=== PATIENT | male | born 1955 | race Caucasian/White ===

== ENCOUNTER 2019-05-18 18:53 | Emergency (ER) | payer SELFPAY ==
[2019-05-18 18:54] VITALS: BP 165/89; PULSE 99; RESP 16; TEMP 36.7; O2SAT 97; BMI 28.0
--- NOTE | 2019-05-18 19:53 | CT_ITS ---
STUDY: CT BRAIN WITHOUT CONTRAST REASON FOR EXAM: Male, 64 years old. Fall, hit head on concrete. RADIATION DOSAGE (If Supplied By Facility): CTDIvol = ( 44.99 ) mGy, DLP = ( 779.24 ) mGycm TECHNIQUE: Transaxial CT imaging of the brain was performed without administration of intravenous contrast material. Individualized dose optimization techniques were used for this CT. COMPARISON: No relevant priors. FINDINGS: Left frontal soft tissue swelling and small hematoma is present. Normal calvarium. Normal size ventricles and extra-axial spaces for the patient's age. Normal white matter tracts of the cerebral hemispheres. Normal basal ganglia and thalami. Normal brainstem. Normal cerebellum. There is no intracranial hemorrhage. There are no findings of an acute ischemic infarction. Normal visualized paranasal sinuses. CT/Brain/Head without Contrast IMPRESSION: Left frontal soft tissue swelling and hematoma with no evidence of underlying fracture, acute intracranial bleed or mass. Electronically Signed: Donn Pedro DO at 20:20 EDT , Service support ,
--- NOTE | 2019-05-18 19:53 | CT_ITS ---
STUDY: CT CERVICAL SPINE WITHOUT CONTRAST REASON FOR EXAM: Male, 64 years old. Fall. RADIATION DOSAGE (If Supplied By Facility): CTDIvol = ( 25.71 ) mGy, DLP = ( 608.41 ) mGycm TECHNIQUE: High resolution transaxial imaging was performed without contrast material. Sagittal and coronal images were reconstructed. Individualized dose optimization techniques were used for this CT. COMPARISON: None FINDINGS: Normal craniovertebral junction. Normal anterior atlantoaxial articulation. Normal odontoid process. Normal cervical lordosis. Normal vertebral bodies and posterior osseous elements. C2-3: Right uncovertebral joint arthropathy and facet arthropathy resulting in moderate right foraminal narrowing. C3-4: Disc osteophyte complex with right uncovertebral joint arthropathy resulting in mild right foraminal narrowing. C4-5: Normal endplates. Normal disc height and morphology. Normal central canal and intervertebral neuroforamina. C5-6: Decreased disc space and endplate sclerosis with uncovertebral joint arthropathy and facet arthropathy resulting in moderate to severe right foraminal narrowing. C6-7: Endplate degenerative change and disc space loss with underlying facet arthropathy resulting in [id number] bilateral foraminal narrowing. C7-T1: Normal endplates. Normal disc height and morphology. Normal central canal and intervertebral neuroforamina. Normal visualized soft tissue structures. CT/Spine Cervical without Contras IMPRESSION: Multilevel degenerative changes as above with no evidence of acute fracture or dislocation. Electronically Signed: Donn Pedro DO at 20:27 EDT , Service support ,
[2019-05-18] MEDS: Diphth,Pertuss(Acell),Tet Vac 0.5 ML Vial IM (20:14)
--- NOTE | 2019-05-18 21:14 | ED.VISSUMM ---
- ER Visit Summary Date of Service: 05/18/19 Chief Complaint: Fall History of Present Illness: The patient is a 64 M who presents after a fall that occurred today. Patient fell getting off a skid steer. Patient fell forward and hit his head. Patient denies any loss of consciousness. Patient admits to some tingling in his hands. Patient describes his pain as burning. Patient admits to some abrasions on his hands bilaterally. Patient also has an abrasion of the left frontal area. Patient denies any visual changes. Patient denies any nausea or vomiting. Physical Examination: Vital signs are stable. Patient is afebrile. Patient is in no acute distress. Skin is warm dry. There is a superficial abrasion and hematoma of the left frontal area. There is a very superficial abrasion over the left hand on the dorsal aspect over the second metacarpal. There is no active bleeding noted. There is no bony crepitance or step-off. Cranial nerves II through XII are intact. There are no focal motor or sensory deficits noted. Heart was regular rate and rhythm. Lungs are clear and equal bilaterally. Abdomen is soft and nontender. Extremities are intact. There is full range of motion of all extremities. There is no deformity noted. There is mild tenderness of the cervical paraspinal muscles. Test Results: CT scan of the brain and cervical spine was obtained. There is no acute intracranial abnormality. There are degenerative changes of the cervical spine. There is no acute fracture. Emergency Department Course and Treatment: Patient was given a tetanus booster. Patient was given head injury instructions. Patient was instructed to follow-up with his primary care physician in 5 to 7 days. Patient was instructed to take Tylenol as needed for pain. Patient and his understood and were agreeable with the plan. All questions were answered. Disposition: Discharge home Impression: 1. Closed head injury 2. Acute cervical strain This note was generated with [employer] dictation software. It may contain incorrect words, spelling, and punctuation that were not noted in review of the chart prior to signing ED Disposition - Plan for ED Patient: Disposition: Home or Assisted Living Diagnosis: Closed head injury, Cervical strain, acute Instructions: HEAD INJURY, No Wake-Up (Adult), Neck Sprain/Strain Referrals: Flash Oden, [Primary Care Provider] - 5-7 Days
[2019-05-18 21:32] VITALS: BP 148/97; RESP 18
== END 2019-05-18 21:37 | disposition home or self-care (01) ==
PROVIDERS: Emergency Provider Emergency Medicine; Family Provider Family Medicine; PCP Family Medicine
DX: S00.81XA Abrasion of other part of head, initial encounter (principal); S16.1XXA Strain of muscle, fascia and tendon at neck level, initial encounter; S60.512A Abrasion of left hand, initial encounter; S60.511A Abrasion of right hand, initial encounter; W19.XXXA Unspecified fall, initial encounter; Y93.9 Activity, unspecified; Y92.9 Unspecified place or not applicable; E11.9 Type 2 diabetes mellitus without complications; G20 Parkinson's disease
CPT/HCPCS: 70450; 72125; 90471; 90715; 99282

== ENCOUNTER → 2019-05-25 12:43 | Outpatient (CLI) | payer OTHER, SELFPAY ==
[2019-05-18 18:54] VITALS: BMI 28.0
--- NOTE | 2019-05-25 12:49 | RAD_ITS ---
STUDY: SWALLOWING STUDY REASON FOR EXAM: Male, 64 years old. Dysphagia. Parkinson's disease. TECHNIQUE: The examination was performed with Speech Pathology in attendance. Under fluoroscopic observation, the patient ingested thin barium, thick barium, barium pudding, and barium coated cracker. FLUOROSCOPY TIME: 1:59 minutes/seconds. 1834 fluoroscopic images were obtained. RADIOLOGIST INVOLVEMENT: Radiologist was present and providing direct supervision. COMPARISON: None. FINDINGS: The following was observed during swallowing of the various mixtures of barium: Thin Barium: There was no evidence of aspiration or laryngeal penetration. Thick Barium: There was no evidence of aspiration or laryngeal penetration. Barium Pudding: There was no evidence of aspiration or laryngeal penetration. Barium Coated Cracker: There was no evidence of aspiration or laryngeal penetration. RAD/Swallowing Function w/Video IMPRESSION: Normal tailored barium swallow study. No evidence of increased risk for aspiration. The swallow study findings were discussed with the patient by the speech pathologist at the conclusion of the examination. Please see speech pathology report for more information and recommendations. Electronically Signed: Henrik Zimmerman, at 13:52 EST , Service support ,
--- NOTE | 2019-05-25 14:34 | SP.MBSS_ITS ---
PRIMARY / SECONDARY DIAGNOSIS: Dysphagia REFERRING PHYSICIAN: Dr. Flash Oden CURRENT DIET: regular textures/thin liquids DENTITION: dental implants MENTAL STATUS: WFL RESPIRATORY STATUS: O2 via room air PREVIOUS MODIFIED BARIUM SWALLOW STUDY: N/A REASON FOR REFERRAL: Patient and , Brianna, both present and report increase in drooling. Pt being seen by speech therapy at [facility] outpatient. Referral made to rule out aspiration. MEDICAL HISTORY: The patient is a 64/m with past medical history significant for Parkinson's Disease and HTN. STUDY FINDINGS: Patient participated in a Modified Barium Swallow (MBS) study on 05/25/2019. Dr. Zimmerman was the radiologist present for this evaluation. This study was recorded in the lateral view and images were sent to PACs for storage. The following consistencies were presented to this patient for analysis of oropharyngeal swallow function: thin liquid, nectar thick liquid, pudding, and a regular textured, Ester Doone cookie. Results of the MBS are as follows: PENETRATION / ASPIRATION SCALE (COOMBS): 1 = does not enter airway 2 = enters airway/above vocal folds/ejected 3 = enters airway/above vocal folds/not ejected 4 = enters airway/contacts vocal folds/ejected 5 = enters airway/contacts vocal folds/not ejected 6 = enters airway/below vocal folds/ejected 7 = enters airway/below vocal folds/not ejected despite effort 8 = enters airway/below vocal folds/no effort PENETRATION / ASPIRATION SCALE (SCORE): 1) Thin liquids via teaspoon = 1 2) Thin liquids via teaspoon = 1 3) Thin liquids via small single sip from cup = 2 *trace 4) Thin liquids via large single sip from cup = 2 *trace 5) Thin liquids via sequential sips from cup = 1 6) [place] thick liquids via small single sip from cup = 1 7) pudding = 1 8) cookie = 1 9) Thin liquids via sequential sips from straw = 2 IMPRESSION: ORAL PHASE CHARACTERIZED BY: LABIAL SEAL: escape progressing to mid-chin TONGUE CONTROL DURING BOLUS MANIPULATION: posterior escape of less than half of bolus BOLUS PREPARATION / MASTICATION: slow prolonged chewing/mashing with complete recollection BOLUS TRANSPORT / LINGUAL MOTION: delayed initiation of tongue motion ORAL RESIDUE: residue collection on oral structures PHARYNGEAL PHASE CHARACTERIZED BY: INITIATION OF PHARYNGEAL SWALLOW: bolus head in pyriforms at first hyoid excursion SOFT PALATE ELEVATION: no bolus between soft palate and pharyngeal wall LARYNGEAL ELEVATION: partial superior movement of thyroid cartilage/partial approximation of arytenoids cartilage to epiglottic petiole ANTERIOR HYOID EXCURSION: partial anterior movement EPIGLOTTIC MOVEMENT: partial epiglottic inversion LARYNGEAL VESTIBULE CLOSURE AT HEIGHT OF SWALLOW: incomplete laryngeal vestibule closure with narrow column of air/contrast in laryngeal vestibule PHARYNGEAL STRIPPING WAVE: pharyngeal stripping wave present / complete PHARYNGOESOPHAGEAL SEGMENT OPENING: partial distension and partial duration; partial obstruction of flow TONGUE BASE RETRACTION:trace column of contrast between tongue base and posterior pharyngeal wall PHARYNGEAL RESIDUE: trace residue within or on pharyngeal structures ESOPHAGEAL PHASE CHARACTERIZED BY: ESOPHAGEAL BOLUS CLEARANCE IN THE UPRIGHT POSITION: could not view DIET TEXTURE RECOMMENDATIONS: Will recommend a mechanical soft textured, thin liquid diet. COMPENSATORY STRATEGIES RECOMMENDED: Will recommend distant supervised meals, reduced bolus volume, reduced rate of intake, no straws, seated upright at 90 degrees during PO intake, and remain upright for 30-60 minutes post meal (GERD precaution). INTERPRETATION OF RESULTS: Patient presents with mild-moderate oropharyngeal dysphagia (R13.12) secondary to Parkinson's disease. Oral phase primarily marked by prolonged mastication with Ester Doone shortbread cookie. Oral holding noted with larger sip of thin liquids resulting in premature bolus loss. Pt required second swallow to clear oral residue from larger sip and cookie. Pharyngeal phase primarily marked by reduced closure of the airway during deglutition attributed to reduced laryngeal elevation and anterior hyoid excursion ultimately resulting in insufficient epiglottic inversion. Trace penetration above the vocal cords noted with thin liquids with both small and large single sips (trace) as well as with thin liquids via straw. All were ejected. No aspiration found on this assessment. Patient had difficulty maneuvering the straw when trialing thin liquids. Would recommend all liquids via cup for better control and management. Patients reported drooling and observation of diminished control of saliva secondary to Parkinson's disease. Education was provided with both the patient on swallowing saliva rather than spitting out to increase strength and coordination of swallowing musculature frequently throughout the day. RECOMMENDATIONS: Patient requires intensive skilled speech-language intervention targeting continued diet texture management of mechanical soft textures and thin liquids, training and implementation of recommended compensatory strategies, and training and implementation of oropharyngeal strengthening exercises to facilitate improved oropharyngeal strength and coordination. ADDITIONAL COMMENTS/RECOMMENDATIONS: Results and recommendations were discussed with the patient and patients immediately following MBS completion, with the both verbalizing understanding and agreement with all recommendations and education provided. IMAGE COUNT: [id number] Elsie Velásquez M.A., [facility] Speech Language Pathologist [facility] [address] [place] [address] [email or web address] [phone]
== END ==
PROVIDERS: Family Provider Family Medicine; PCP Family Medicine; Referring Provider Family Medicine; Visit Provider Family Medicine
DX: G20 Parkinson's disease (principal); R13.10 Dysphagia, unspecified
CPT/HCPCS: 74230; 92610

== ENCOUNTER 2019-06-05 14:00 | Outpatient (RCR) | payer SELFPAY ==
--- NOTE | 2019-04-14 08:13 | HP.PTEVAL ---
Patient's Visit Information YIFAN BALLESTEROS is a 64 year old M referred to Physical Therapy by Flash Oden DO with a diagnosis of PARKINSON DISEASE ,ABNORMALITY OF GAIT AND MOBLITY. Date of Evaluation: 04/14/19 Physical Therapist: Stan Judd, PT, Cert MDT, OCS - Visit Plan Frequency: 1-2x /Week Duration: 4 Weeks Plan: PT INTERVENTIONS. COMPLETE BALANCE PERFORMANCE ASSESSEMNT,ESTABLISH APPROPRAITE EX'S FOR PARKINSINS,PROGRESSVE BALANCE AND GAIT PROGRAM - Subjective Findings: This 64 y/o male presensts to physical therapy with parkinson disease and gait an moblity. This patient has parkinsoms for about 8 years which has affect gait and balance.Patient has had several falls outside and inside. Patient states unabld to walk back ,go through doorways. Patient uses rollator in home but uses cane extended outside . Patient denies dizziness ,nuasea,tinnutus. Some difficulty with steps with rail.Patient MEDS Carbo-levo for parkinsosns. Seen DR for parkinson DR Maldonado and changed MEDS . Patient requires assistance to get shirt on Indpendant with shower. does coooking and cleaning. Patient condition affects ADL'S and housework taks. Patient impairments affects QOL.COMORBITIES : 2 lumbar surgery ,HTN,boderline DM. SOCIAL: -HAILE. VOCATION: retired - Objective POSTURE: mod foward posture. GAIT: ambulates with cane festation parrtern,shufffle steps ,mild foward posture,hip/knees flexed. BALANCE: FAIR+ with cane. INITATION FUNCTIONAL : Tasks mod difficulty. STAIRS: a;lternating with steps with rail cane. FLEXABLITY: hams mild/mod limited,achilles tightness. MMT: quads/hams 4/5,4-/5 hip flexion/abd ,ankle4/5 - Balance Scores Functional Gait Assessment Score: 10 % Disability: 66.6700 CATSIB Score (Max score 120 seconds): 30 - Goals Goal 1:: Patient to be Independant with approprioate parkinson ex's. Goal Time Frame: 4-6 Weeks Goal 2:: Complete balance peformance assessment on Neurcom and make appropriate recommendations. Goal Time Frame: 4-6 Weeks Goal 3:: Improve CATSIB SCORE by 5-10 points > to improve balance. Goal Time Frame: 4-6 Weeks Goal 4:: Patient to improve functional gait assessment score by 5 points OR > to decrease risk of falls. Goal Time Frame: 4-6 Weeks Goal 5:: Patient to improve LFES SCORE by 5-10 points> or to improve QOL. - Rehabilitation Potential Physical Therapy Diagnosis: This patient has parkinsons disease with deficits with balance ,gait ,initation of tasks ,frequent falls thus benifit from skilled PT. Rehabilitation Potential: Good - Anticipated Interventions Patient/Client Instruction: Educate patient on: Condition, Plan of Care For the Purpose of:: To decrease pain, To increase ROM, To improve muscle performance and motor function, To improve ability to perform ADL's, To increase tolerance to activity/condition/position, To improve performance and independence with ADL's, To improve ability of physical actions for home/community/work/leisure, To improve gait and locomotor functions, To improve endurance, To improve balance, To improve safety with gait, To improve ability to perform tasks related to life management Therapeutic Exercise to Include: Strength training, Endurance training, Balance training, Coordination, Agility training, Flexibilty training, Gait and locomotor training For the Purpose of:: To decrease pain, To improve muscle performance and motor function, To improve ability to perform ADL's, To increase tolerance to activity/condition/position, To improve performance and independence with ADL's, To improve ability of physical actions for home/community/work/leisure, To improve gait and locomotor functions, To increase flexibility/ROM, To improve endurance, To improve balance, To improve safety with gait Functional Training to Include: Gait training For the Purpose of:: To improve muscle performance and motor function, To improve ability to perform ADL's, To improve gait and locomotor functions Thank you for the opportunity to evaluate your patient. For Medicare and Medicare HMO plans, please review the plan of care and approve it. It will need to be FAXED BACK to us at [phone] for Medicare purposes. For Medicare only, by signing this I certify the plan of care. Please let me know if there are questions or concerns regarding this plan of care. Physician Signature: Date:
--- NOTE | 2019-04-18 12:45 | HP.SP.AD ---
History - History Date of Eval: 04/18/19 Medical Diagnosis (from RX): Parkinsons disease Date of Onset of Diagnosis: 2010 Previous speech therapy: Yes Results: He had dysphonia evaluation in 2011 with no speech therapy recommended. Other Relevant Medical History/Diagnoses/Surgery: Diabetic, High blood Pressure. Medications related to this diagnosis: enanapril, medformin and carbidopa- levadopa x4 times a daily. 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 He demonstrated awareness of drooling. He often smiled with open lips which allowed for increase in drooling. It appeared that he did not swallow often enough. - Lingual Impairment: WNL Protrusion: WNL Retraction: WNL Lateralization: WNL - Respiratory Status Respiratory Status: Room Air Subjective Dysphagia - Current Diet Solids Current Diet: Regular - Current Diet Liquids Current Liquids: Thin Subjective Voice - Alcoholic Beverage Intake Intake: Rarely Objective Voice - Date of Diagnosis Previous Speech Therapy (If yes, describe): No - Medications Familiar with on/off effect: No - Implantation Deep brain implantation (If yes, answer next question): No - Objective data Objective Data: Objective data: Sound pressure level (SPL acoustic correlation of vocal loudness) was measured with a sound level meter at a distance of 40 cm from the patient's mouth. Average conversational loudness is 70-80 dB and sustained phonation duration is 15 to 20 seconds for a typical adult. Sustained Phonatin duration (seconds): 13 seconds average. Ranges from 9- 17 Is the individual stimulable to increase vocal intensity: Yes Vocal Intensity at Conversational Level (dB SPL): 63.6 - Acoustic Analysis Acoustic Analysis: These results represent reading and conversational decibel levels that may significantly reduce speech intelligibility and communicative effectiveness. Amplitude Intensity Sustained (Average) in dB SPL: 79 Other Impressions - Comments Functional Communication -: Hussein reported that he speaks less due to people having difficulty understanding him. He stated that he has to repeat when speaking to most listeners. 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 His functional communication deficit are impacted in all areas of his life. Plan - Plan Plan: Speech therapy is warranted for decreased functional communication impacting all areas of his life. - Recommendations Treatment Warranted: Yes - Frequency Frequency: 1x/Week Duration: 8 Visits in this POC: 8 - Prognosis Prognosis: Good - Goals that are Established: Determination:: Goals will be added/modified as deemed necessary and appropriate. Therapy will be discontinued when results of re-evaluation indicate therapy is no longer needed or lack of progress has been documented. - Goal #1-5 Goal #1: Patient will sustain phonation for 15-20 seconds to increase vocal respiratory support required for functional communication. Goal #2: Patient will increase vocal loudness to reach a target sound pressure level of 70 dB FURNITURE MOVER with 1 cue during reading at the word and sentence level, which will help increase vocal respiratory support for functional communication. Goal #3: Patient will increase vocal loudness to reach a target sound pressure level of 70 dB FURNITURE MOVER with 1 cue during conversation for functional communication. Education - Patient has Indicated that the Following Identified Educational Needs: None The Patient has indicated that they have no educational or learning abilities that may effect their care.: Yes - Patient Instruction Patient Education: Diagnosis, Treatment Plan, Goals, Home Exercise Program Person Taught: Patient Teaching Method: Discussion Response to teaching: Verbalize understanding
--- NOTE | 2019-04-25 11:47 | HP.PTCOM_ITS ---
PT Communication Note 04/25/[address] Flash Oden, DO , Thank you for the referral of Hussein Pettit to our clinic with a diagnosis of Parkinson's. He was tested on our [employer] System today and enclosed are the patients results. On the Sensory Organization Test (SOT) the patients overall composite score is below his age related norm. He has trouble with the use of his vestibular system to help him maintain his balance and his center of gravity alignment is more posterior. His strategy analysis is more ankle dominant which is higher lever. On the Motor Control Test ( MCT) the patients overall reaction time is within age related norms. On the Limits of Stability Test ( LOS) the patients ability to weight shift forward without falling is diminished. At this point in time, we will work on balance with vestibular inputs and weight shifting safely forward. We will also work on gait training, dual tasking, big movements with HEP Sincerely, Belen Torres, MAITE Contact Information
--- NOTE | 2019-05-24 13:59 | HP.PTDCSUM ---
HP - PT D/C Summary It has been my pleasure to treat YIFAN BALLESTEROS under orders from Flash Oden DO, for the diagnosis of PARKINSON DISEASE ,ABNORMALITY OF GAIT AND MOBLITY for a total of 9 visit(s). Discharge Date: 05/24/19 Please see the following information for a summary of their discharge status. - Subjective Subjective: Doing okay . Brought in walker. Patient does fall ,from parkinsons at hoem. States falling at home occasionally . - Pain LBP Pain Intensity (Out of 10): 3 R ankle Pain Intensity (Out of 10): 3 R sh Pain Intensity (Out of 10): 3 - Overall Improvement % Improvement: 40 - Objective Objective/Function: POSTURE: MILD FOWARD POSTURE. GAIT: INTIAL UNSAFE FESTATION SHUFFLES OCCASSIONALLY FALLS FOWARD. BALANCE: FAIR_+. MMT: 4/5 BLE - Goals Goal 1:: Patient to be Independant with approprioate parkinson ex's. Goal 2:: Complete balance peformance assessment on Neurcom and make appropriate recommendations. Goal Progress: Progressing Goal 3:: Improve CATSIB SCORE by 5-10 points > to improve balance. Goal Progress: Progressing Goal 4:: Patient to improve functional gait assessment score by 5 points OR > to decrease risk of falls. Goal Progress: Progressing Goal 5:: Patient to improve LFES SCORE by 5-10 points> or to improve QOL. Goal Progress: Progressing Goal 6:: Improve weight shifting fw on the LOS test to be able to stop himself from falling fw if he weight shifts too far fw Goal Progress: Progressing - Plan Plan: D/C - D/C Information If there are questions or concerns regarding this patient's physical therapy, please feel free to call me at [phone]. Thank you for the referral of this patient. Sincerely, Stan Judd, PT, Cert MDT, OCS
--- NOTE | 2019-06-26 10:48 | HP.SP.DC_ITS ---
ST Discharge Summary - Discharged: Discharge: Hussein Pettit is discharged from [facility] speech therapy as of 06/05/19. Hussein made significant progress towards his goals to increase his loudness during speech. He increased his sustained phonation from 11 to 15 seconds which met his goal. His next goal was to increase loudness during sentences and in conversation to a decibel level of 70 during sentences and during his last session it was 70.6 average. His last goal was to produce functional communication to a level of 70 dB and in conversation with no cues: 69 dB and with one 69.5 dB average. This is very close to his goal and his functional communication has increased significantly at home. He reported being able to speak now in front of his hindu and be heard. He also had a modified barium swallow study in which he had recommended mechanical soft foods and thin liquids. The patient was provided with swallowing exercises to help maintain the abilities he has due to the progressive nature of his diagnosis. A copy of this discharge summary will be sent to his referring physician.
== END 2019-06-05 19:00 | disposition home or self-care (01) ==
LOC: SP 14:00
PROVIDERS: Family Provider Family Medicine; PCP Family Medicine; Referring Provider Family Medicine; Visit Provider Family Medicine
DX: F80.9 Developmental disorder of speech and language, unspecified (principal); R26.89 Other abnormalities of gait and mobility; G20 Parkinson's disease
CPT/HCPCS: 92507; 92524; 97110; 97162; 97530; 97750

== ENCOUNTER → 2019-06-12 08:48 | Outpatient (CLI) | payer OTHER, SELFPAY ==
[2019-06-12 08:34] VITALS: BMI 28.0
--- NOTE | 2019-06-12 08:49 | RAD_ITS ---
STUDY: X-RAY - RIGHT ANKLE REASON FOR EXAM: Male, 64 years old. No known injury. Pain. TECHNIQUE: 3 view(s) of the ankle. COMPARISON: None. FINDINGS: No acute fracture, dislocation or osseous destruction. Ankle mortise well aligned. No significant joint space narrowing. No significant productive changes. No significant soft tissue swelling. RAD/Ankle min 3 Views IMPRESSION: Right ankle intact No significant degenerative features Electronically Signed: Jared Oliveros DO at 9:06 EST Tel , Service support ,
== END ==
PROVIDERS: Family Provider Family Medicine; PCP Family Medicine; Referring Provider Physician Assistant; Visit Provider Physician Assistant
DX: M25.571 Pain in right ankle and joints of right foot (principal)
CPT/HCPCS: 73610

== ENCOUNTER 2019-06-12 09:46 | Outpatient (RCR) | payer SELFPAY ==
[2019-06-12 08:34] VITALS: BMI 28.0
--- NOTE | 2019-06-12 14:41 | HP.PTEVAL_ITS ---
Patient's Visit Information YIFAN BALLESTEROS is a 64 year old M referred to Physical Therapy by RAISA Meraz with a diagnosis of R ANKLE SPRAIN(CFL/PTF), PERONEAL TENDONITIS. Date of Evaluation: 06/12/19 Physical Therapist: Aylin Alicia, PT, Cert MDT - Visit Plan Frequency: 1x/Week Duration: 1 Week Plan: D/C TO HEP AT PATIENT AND 'S REQUEST. - Subjective Findings: Work/Leisure: [employer]. 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 Present symptoms: PAIN ON THE OUTSIDE OF THE ANKLE. NO LEG OR FOOT PAIN. JUST THE ANKLE. NO NUMBNESS OR TINGLING. Present since: ABOUT A MONTH AGO. Pain Scale: WORST 8/10, LEAST 1/10. Currently: 07/28. Commenced as a result of: NO APPARENT REASON. PATIENT REPORTS HE DOES'T KNOW WHAT HE DID BUT IT MIGHT HAVE HAPPENED WITH A FALL. Symptoms at onset: RIGHT ANKLE. Worse: WALKING ON IT, GETTING UP FROM FALLING (FALLS QUITE FREQUENTLY). Better: BRACE (JUST GOT IT TODAY), IBUPROFEN, ICE. Disturbed sleep: NO. Previous history/Previous treatment: UNREMARKABLE. Gait: PATIENT REPORTS THAT IT DEPENDS HOW HE STEPS BUT SOMETIMES IT GIVES WAY. HAS FALLEN DUE TO THIS. LAST FALL WAS YESTERDAY. FALLING ALMOST DAILY. USUALLY DOESN'T FALL WHEN USING THE WALKER. USUALLY FALLS IF HAS CANE OR NO ASSISTIVE DEVICE. Accidents: FALL ABOUT A MONTH AGO - WENT TO EMERGENCY ROOM - HIT HEAD. Unexplained weight loss: NO. Imaging: RIGHT ANKLE X-RAY - NORMAL. NO MRI. PMH: NIDDM, HTN, PARKINSON'S DZ, 2 LUMBAR BACK SURGERIES, HERNIA SURGERY. OTHER: PATIENTS IS WITH HIM TODAY. PATIENT AND ARE REQUESTING ONE TIME VISIT FOR [facility]. - Objective THIS PATIENT AMBULATES INDEP'LY INTO PT WITH A ROLLATOR WEARING RIGHT ANKLE BRACE. HE HAS A MILD LIMP ON THE RIGHT LE. HE IS DEPENDENT ON THE WALKER FOR BALANCE. PATIENT DEMONSTRATES INDEP TRANSFERS SIT TO STAND AND REVERSE. ALBE TO PUT SOCK ON BY HIMSELF BUT NEEDS 'S ASSIST TO PUT SHOE AND ANKLE BRACE ON. HE IS ABLE TO ACTIVELY WIGGLE HIS TOES AND MOVE HIS ANKLE IN ALL DIRECTIONS. AROM: DORSIFLEX +5 DEG, PLANTAR FLEXION 25 DEG, INVERSION 20 DEG, EVERSION 5 DEG. STRENGHT: LEFT KNEE 4/5, ANKLE 4-/5 ALL PLANES. PALPATION: PATIENT IS TENDER ALONG THE INFERIOR LATERAL MALLEOLUS AND HAS MILD EDEMA IN THIS AREA WELL. PATIENT WAS SEEN TODAY FOR EVAL AND HEP DESCRIBED BELOW. - Goals Goal 1:: INDEP HEP Goal Time Frame: 1 VISIT - Rehabilitation Potential Rehabilitation Potential: Fair - Anticipated Interventions Therapeutic Exercise to Include: Strength training, Flexibilty training, Active ROM For the Purpose of:: To decrease pain, To increase ROM, To improve nutrient delivery to tissue, To improve muscle performance and motor function, To increase tolerance to activity/condition/position, To improve ability of physical actions for home/community/work/leisure Thank you for the opportunity to evaluate your patient. For Medicare and Medicare HMO plans, please review the plan of care and approve it. It will need to be FAXED BACK to us at [phone] for Medicare purposes. For Medicare only, by signing this I certify the plan of care. Please let me know if there are questions or concerns regarding this plan of care. Physician Signature:____ Date:
--- NOTE | 2019-06-12 14:42 | HP.PTDCSUM ---
HP - PT D/C Summary It has been my pleasure to treat YIFAN BALLESTEROS under orders from RAISA Meraz, for the diagnosis of R ANKLE SPRAIN(CFL/PTF), PERONEAL TENDONITIS for a total of 1 visit(s). Discharge Date: Please see the following information for a summary of their discharge status. - Goals Goal 1:: INDEP HEP - Plan Plan: D/C TO HEP AT PATIENT AND 'S REQUEST. - D/C Information If there are questions or concerns regarding this patient's physical therapy, please feel free to call me at [phone]. Thank you for the referral of this patient. Sincerely, Aylin Alicia, PT, Cert MDT
== END 2019-06-12 19:00 | disposition home or self-care (01) ==
LOC: PT 09:46
PROVIDERS: Family Provider Family Medicine; PCP Family Medicine; Visit Provider Physician Assistant
DX: S93.411D Sprain of calcaneofibular ligament of right ankle, subsequent encounter (principal); M76.71 Peroneal tendinitis, right leg
CPT/HCPCS: 97162; 97530